=== PATIENT | female | born 1965 | race Caucasian/White ===

== ENCOUNTER → 2021-04-17 15:24 | Outpatient (CLI) | payer OTHER, SELFPAY ==
--- NOTE | 2021-04-17 15:24 | DI.MG.S_ITS ---
BILATERAL DIGITAL SCREENING MAMMOGRAM 3D/2D WITH CAD: 04/17/2021 CLINICAL: Routine screening. Comparison is made to exams dated: 04/20/2016 mammogram and 03/07/2015 mammogram - [facility]. There are scattered fibroglandular elements in both breasts. Current study was also evaluated with a Computer Aided Detection (CAD) system. No significant masses, calcifications, or other findings are seen in either breast. There has been no significant interval change. IMPRESSION: NEGATIVE There is no mammographic evidence of malignancy. A 1 year screening mammogram is recommended. This exam was interpreted at Station ID: [id number]. NOTE: For mammograms, a report in lay terms will be sent to the patient. Approximately 15% of breast malignancies will not be visualized mammographically. In the management of a palpable breast mass, a negative mammogram must not discourage biopsy of a clinically suspicious lesion. Electronically Signed By: Imer jackson/awa:04/17/2021 16:47:19 letter sent: Normal Exam ACR BI-RADS Category 1: Negative 3341F
== END ==
PROVIDERS: Family Provider Family Medicine; PCP Family Medicine; Referring Provider Family Medicine; Visit Provider Family Medicine
DX: Z12.31 Encounter for screening mammogram for malignant neoplasm of breast (principal)
CPT/HCPCS: 77063; 77067

== ENCOUNTER → 2022-02-28 15:52 | Outpatient (CLI) | payer OTHER, SELFPAY ==
--- NOTE | 2022-02-28 15:54 | DI.MRI.S_ITS ---
PROCEDURE: MR KNEE RT WO CON INDICATIONS: Pain in right knee TECHNIQUE: Noncontrast sagittal PD fast spin echo and T2 fast spin echo with fat saturation, sagittal 3-D FLASH with fat saturation; coronal T1 spin echo and PD fast spin echo with fat saturation, and axial PD fast spin echo with fat saturation through the knee. COMPARISON: [facility] [place], CR, XR KNEE 4+ VIEWS RIGHT, 06/26/2021, 13:10. FINDINGS: Image quality: Excellent. 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 Inferior displacement of the torn fibers is noted. Posterior Cruciate Ligament: Intact. Medial Collateral Ligament: Intact. Lateral Collateral Ligament: Intact. Medial Meniscus: There is horizontal oblique tearing of the posterior horn and body of the medial meniscus extending to the inner third of the tibial articular surface. Lateral Meniscus: Intact. Medial and Lateral Tendons: The semimembranosus tendon insertions and meniscocapsular junction appear intact. Visualized portions of the pes anserinus tendons appear normal. No abnormal bursal fluid. The long and short heads of the biceps femoris tendon appear intact. The popliteus tendon appears intact. No signs of posterolateral corner injury. Iliotibial band appears normal. Anterior Structures: There is mild patella zhane. The distal quadriceps tendon is intact. No patellar subluxation. No femoral trochlear dysplasia or ventral trochlear prominence. No edema in the infrapatellar fat pad. Bones: No acute trabecular bone injury or fracture. There is mild anterior translation of the proximal tibia relative to the distal femur. Medial Femorotibial Cartilage: Focal high-grade partial-thickness cartilage loss is seen at the central to posterior weight-bearing portion of the medial femoral condyle measuring approximately 8 x 2 mm. Additional partial-thickness cartilage loss is seen at the far posterior portion of the medial femoral condyle. Lateral Femorotibial Cartilage: No focal cartilage defect. Patellofemoral Cartilage: No focal cartilage defect. Soft Tissues: There is a small joint effusion. Small medial popliteal cyst. The musculature surrounding the knee is normal in bulk. IMPRESSION: 1. 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 2. Horizontal oblique tear of the posterior horn and body of the medial meniscus extending to the middle third of the tibial articular surface. 3. 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 4. Mild patella zhane. 5. Small joint effusion. Small medial popliteal cyst. Dictated by: Imer Flores M.D. on 03/01/2022 at 10:11 Approved by: Imer Flores M.D. on 03/01/2022 at 10:30
== END ==
PROVIDERS: Family Provider Family Medicine; PCP Family Medicine; Referring Provider Orthopaedic Surgery; Visit Provider Orthopaedic Surgery
DX: M25.561 Pain in right knee (principal); S83.511D Sprain of anterior cruciate ligament of right knee, subsequent encounter; S83.241A Other tear of medial meniscus, current injury, right knee, initial encounter; M94.261 Chondromalacia, right knee; M25.461 Effusion, right knee
CPT/HCPCS: 73721

== ENCOUNTER → 2023-10-08 07:58 | Outpatient (CLI) | payer OTHER, SELFPAY ==
[2023-10-08 09:05] LABS: Add Manual Diff / Slide Review NO; Basophils Absolute Auto 0 /uL (0-100); Basophils Percent Auto 0.2 % (0-2); Eosinophils Absolute Auto 100 /uL (0-450); Eosinophils Percent Auto 2.3 % (2-4); Hematocrit 38.6 % (36-46); Hemoglobin 12.8 g/dL (12.0-16.0); Lymphocytes Absolute Auto 1700 /uL (1100-4500); Lymphocytes Percent Auto 40.4 % (25-40); Mean Corpuscular HGB Conc 33.2 % (30-36); Mean Corpuscular Hemoglobin 32.6 PG (26-34); Mean Corpuscular Volume 98.3 fL (80-100); Monocytes Absolute Auto 400 /uL (0-900); Monocytes Percent Auto 10.2 % (3-14); Neutrophils Absolute Auto 2000 /uL (1500-7000); Neutrophils Percent Auto 46.9 % (50-75); Platelet Count 249 X10^3/uL (150-400); Red Blood Cell Count 3.93 X10^6/uL (4.0-5.2); Red Cell Distribution Width 13.6 % (11.6-14.8); White Blood Cell Count 4.3 X10^3/uL (4.5-11.0)
[2023-10-08 09:15] LABS: HEMOLYSIS < 15 (0-50)
[2023-10-08 09:31] LABS: Alanine Aminotransferase 13 IU/L (<35); Albumin 4.4 g/dL (3.5-5.0); Albumin Globulin Ratio 1.6 (1.0-2.8); Alkaline Phosphatase 67 U/L (38-126); Aspartate Aminotransferase 24 IU/L (14-36); BUN Creatinine Ratio 13.6 (6-22); Bilirubin Total 0.6 mg/dL (0.2-1.3); Blood Urea Nitrogen 9 mg/dL (7-17); Calcium 9.2 mg/dL (8.4-10.2); Carbon Dioxide 26 mmol/L (22-32); Chloride 106 mmol/L (98-107); Cholesterol 207 mg/dL (140-199); Estimated Glomerular Filt Rate > 60 mL/min (>60); Globulin 2.7 g/dL (1.7-4.1); Glucose 91 mg/dL (80-110); HDL Cholesterol 75 mg/dL (40-60); LDL Cholesterol Calculated 118 mg/dL (<100); Sodium 138 mmol/L (137-145); Total Protein 7.1 g/dL (6.3-8.2); Triglycerides 68 mg/dL (35-150)
[2023-10-08 10:16] LABS: Thyroid Stimulating Hormone 2.85 uIU/mL (0.47-4.68)
[2023-10-08 20:29] LABS: Vitamin B12 355 pg/mL (239-931)
== END ==
LOC: LAB 07:59
PROVIDERS: Family Provider Family Medicine; PCP Family Medicine; Referring Provider Family Medicine; Visit Provider Family Medicine
DX: Z13.220 Encounter for screening for lipoid disorders (principal); Z13.29 Encounter for screening for other suspected endocrine disorder; E53.8 Deficiency of other specified B group vitamins; K90.0 Celiac disease
CPT/HCPCS: 36415; 80053; 80061; 82607; 84443; 85025

== ENCOUNTER → 2023-10-16 16:16 | Outpatient (CLI) | payer OTHER, SELFPAY ==
--- NOTE | 2023-10-16 16:17 | DI.MG.S_ITS ---
BILATERAL DIGITAL SCREENING MAMMOGRAM 3D/2D WITH CAD: 10/16/2023 CLINICAL: Routine screening. Comparison is made to exams dated: 04/17/2021 mammogram, 04/20/2016 mammogram, and 03/07/2015 mammogram - [facility]. Both breasts are heterogeneously dense, which may obscure small masses (category c / 51-75% glandular tissue). Current study was also evaluated with a Computer Aided Detection (CAD) system. No significant masses, calcifications, or other findings are seen in either breast. There has been no significant interval change. IMPRESSION: NEGATIVE There is no mammographic evidence of malignancy. A 1 year screening mammogram is recommended. Based on the Tyrer Cuzick model (a risk assessment model) the patient's lifetime risk is 10.1% and her 10 year risk is 4.1%. According to the ACR, ACS, and NCCN guidelines, an annual breast MRI exam along with mammogram is recommended if the patient's lifetime risk is 20% or greater. This exam was interpreted at Station ID: [id number]. NOTE: For mammograms, a report in lay terms will be sent to the patient. Approximately 15% of breast malignancies will not be visualized mammographically. In the management of a palpable breast mass, a negative mammogram must not discourage biopsy of a clinically suspicious lesion. Electronically Signed By: Vinny hazel/awa:10/17/2023 08:51:59 letter sent: Normal Exam ACR BI-RADS Category 1: Negative 3341F
== END ==
PROVIDERS: Family Provider Family Medicine; PCP Family Medicine; Referring Provider Family Medicine; Visit Provider Family Medicine
DX: Z12.31 Encounter for screening mammogram for malignant neoplasm of breast (principal); R92.333 Mammographic heterogeneous density, bilateral breasts
CPT/HCPCS: 77063; 77067

== ENCOUNTER → 2024-02-11 17:29 | Outpatient (CLI) | payer OTHER, SELFPAY ==
--- NOTE | 2024-02-11 17:31 | DI.RAD.S_ITS ---
PROCEDURE: XR CHEST 2V INDICATIONS: Other chest pain TECHNIQUE: 2 views of the chest were acquired. COMPARISON: None. FINDINGS: Surgical changes and devices: None. Lungs and pleura: Lungs are clear. No pleural effusions or pneumothorax. Mediastinum: Mediastinal contours are normal. Heart size is normal. Bones and chest wall: No suspicious bony abnormalities. Soft tissues appear unremarkable. IMPRESSION: No acute cardiopulmonary pathology. Dictated by: Ryder Rodríguez M.D. on 02/11/2024 at 20:58 Approved by: Ryder Rodríguez M.D. on 02/11/2024 at 21:00
== END ==
LOC: RAD 17:30
PROVIDERS: Family Provider Family Medicine; PCP Family Medicine; Referring Provider Family Medicine; Visit Provider Family Medicine
DX: R07.89 Other chest pain (principal)
CPT/HCPCS: 71046

== ENCOUNTER → 2024-05-20 10:17 | Outpatient (CLI) | payer OTHER, SELFPAY ==
--- NOTE | 2024-05-20 19:00 | DI.NM.S_ITS ---
DATE OF SERVICE: 05/20/2024 EXERCISE PERFUSION STUDY INDICATION: Chest pain with underlying hyperlipidemia. RADIOPHARMACEUTICAL: 25.6 millicurie technetium-99m Myoview IV was injected at stress and 12.5 millicurie technetium-99m Myoview IV was injected at rest. CARDIAC STRESS: Patient underwent exercise perfusion study under the supervision of an attending staff. The patient walked on Ramiro protocol for 10 minutes and 10 seconds, achieved maximum heart rate of 173, which was 109% of target heart rate, normal blood pressure response. Resting blood pressure 108/80 and peak blood pressure 170/90. 12.8 METS of workload. AWILDA -52%. Baseline rhythm was sinus. During stress, some nonspecific upsloping ST depression in inferolateral leads without any convincing ischemic changes. No significant arrhythmias. No chest pain. Had some shortness of breath. Normal recovery. RAW DATA: There is increased breast shadow. GATED STUDY: Resting LV ejection fraction 74% and stress LV ejection fraction 81% without any obvious wall motion abnormalities. Resting end- diastolic volume 85 mL. TID ratio 0.92, which is within normal limits. Lung/heart ratio 0.28, which is within normal limits. MYOCARDIAL PERFUSION: Stress supine, resting supine, and stress prone images were compared to each other. Stress and resting supine images revealed small size, mildly decreased perfusion of anterior apex which got resolved during stress prone images. CONCLUSION: I will call the study likely a normal myocardial perfusion study with evidence of breast tissue attenuation artifact which got resolved during stress prone images. Excellent exercise tolerance. Normal hemodynamic response. No anginal symptoms. No significant arrhythmias. Preserved LV function. Overall, low-risk exercise myocardial perfusion study. [place] - NATE/derick/SERGIO doc#: [id number]/job#: [id number] dd: 05/20/2024 16:21:00 dt: 05/20/2024 18:48:00 DICTATING MD/COPIES TO: Neyda Winchester MD COPIES MNE: POWER;
== END ==
PROVIDERS: Family Provider Family Medicine; PCP Family Medicine; Referring Provider Family Medicine; Visit Provider Family Medicine
DX: R07.89 Other chest pain (principal); E78.2 Mixed hyperlipidemia; R42 Dizziness and giddiness; R55 Syncope and collapse
CPT/HCPCS: 78452; 93017; A9502

== ENCOUNTER → 2025-01-07 15:37 | Outpatient (CLI) | payer OTHER, SELFPAY ==
--- NOTE | 2025-01-07 15:38 | DI.MG.S_ITS ---
MM screening mammo BI: 01/07/2025. BI-RADS: 1 CLINICAL: 59-year old female for bilateral screening mammogram. Tyrer-Cuzick lifetime risk of 4.7%. No personal or first-degree family history of breast cancer. Current reported family history of breast cancer: paternal aunt's daughter. PRIOR EXAMS 10/16/2023, 04/17/2021, 04/20/2016, 03/07/2015. MAMMOGRAPHY TECHNIQUE: 2D and 3D (tomosynthesis) digital mammographic views obtained, with additional images as needed for full coverage. Current study was also evaluated with a Computer Aided Detection (CAD) system. DENSITY B. There are scattered areas of fibroglandular density. MAMMOGRAPHY FINDINGS Bilateral: No suspicious mass, asymmetry, microcalcification, or other abnormality seen. No significant change from comparison. IMPRESSION: * No evidence of malignancy. RECOMMENDATIONS Bilateral * Annual screening mammography. OVERALL ASSESSMENT CATEGORY BI-RADS-1: Negative. The [employer] recommends annual screening mammography beginning at age 40 for women with average risk of breast cancer. ELECTRONICALLY SIGNED: Ya Hebert M.D. on 01/08/2025 at 09:17:20 AM PT Interpreting Station ID: [id number]
== END ==
LOC: MAMMO 15:37
PROVIDERS: Family Provider Family Medicine; PCP Family Medicine; Referring Provider Family Medicine; Visit Provider Family Medicine
DX: Z12.31 Encounter for screening mammogram for malignant neoplasm of breast (principal); Z80.3 Family history of malignant neoplasm of breast
CPT/HCPCS: 77063; 77067